=== PATIENT | female | born 1950 | race Caucasian/White ===

== ENCOUNTER → 2020-10-04 | Outpatient (CLI) | payer OTHER ==
[2020-10-04 11:35] LABS: Appearance,Urine Clear (Clear); Bilirubin,Urine Negative (Negative); Blood,Urine Moderate (Negative); Color,Urine Light Yellow; Glucose,Urine (UA) Negative (Negative); INR 0.9 (<1.2); Ketones,Urine Negative (Negative); Leukocyte Esterase,Urine Negative (Negative); Mucus,Urine Rare /hpf; Nitrite,Urine Negative (Negative); Partial Thromboplastin Time 24.2 sec (22.0-30.0); Protein,Urine Negative (Negative); Prothrombin Time 10.1 sec (9.0-12.0); RBC,Urine 2 /hpf (0-5); Specific Gravity,Urine 1.009 (1.001-1.035); Urobilinogen,Urine <2.0 mg/dL (<2.0); WBC,Urine <1 /hpf (0-5)
[2020-10-04 11:38] LABS: ALT 26 U/L (4-34); AST 24 U/L (14-36); African American GFR (CKD) >90 (>60 ml/min/1.73 sqM); Albumin 4.9 g/dL (3.5-5.0); Alkaline Phosphatase 70 U/L (38-126); Anion Gap 9 mmol/L; Blood Urea Nitrogen 16 mg/dL (7-17); Calcium 10.6 mg/dL (8.4-10.2); Carbon Dioxide 29 mmol/L (22-30); Chloride 101 mmol/L (98-107); Glucose 91 mg/dL (74-99); Non-African American GFR(CKD) >90 (>60 ml/min/1.73 sqM); Sodium 139 mmol/L (137-145); Total Bilirubin 0.6 mg/dL (0.2-1.3); Total Protein 7.5 g/dL (6.3-8.2)
[2020-10-04 11:52] LABS: HCT 37.3 % (34.0-46.0); MCH 31.7 pg (25.0-35.0); MCHC 34.8 g/dL (31.0-37.0); MCV 91.1 fL (80.0-100.0); Mean Platelet Volume 6.7; Platelet Count 257 k/uL (150-450); RBC 4.09 m/uL (3.80-5.40); RDW 12.9 % (11.5-15.5); WBC 9.1 k/uL (3.8-10.6)
== END | disposition home or self-care (01) ==
LOC: LABPAT 09:57
PROVIDERS: ATTEND Orthopaedic Surgery
DX: Z01.812 Encounter for preprocedural laboratory examination (principal); R94.31 Abnormal electrocardiogram [ECG] [EKG]
CPT/HCPCS: 36415; 80053; 81001; 85027; 85610; 85730; 87070; 93005

== ENCOUNTER 2020-10-29 09:02 | Day surgery (SDC) | payer MEDICARE, OTHER ==
[2020-10-08 13:39] VITALS: BMI 21.2
[~2020-10-29 09:02] MED LIST: ACETAMINOPHEN TAB 500 MG TAB PO PRN; DEXAMETHASONE SOD PHOSPHATE 4 MG/ML 1 ML VIAL IV ONE; LACTATED RINGERS 1,000 ML IV SCH; LIDOCAINE 1% (10MG/ML) FOR IV START INTRADERMA PRN; MELOXICAM 7.5 MG TAB PO PRN; ROPIVACAINE/EPI/CLONIDINE/KET 50 ML SYRINGE MISCELLANE PRN; TRANEXAMIC ACID 1,000 MG in SODIUM CHLORIDE 0.9% 100 ML IVPB PRN
[2020-10-29] MEDS: ONDANSETRON 4 MG/2 ML VIAL IVP PRN ×2 (09:50→11:50)
[2020-10-29] MEDS ORDERED: PROPOFOL 10 MG/ML 20 ML VIAL IV ONE (09:56)
[2020-10-29] MEDS ORDERED: SODIUM CHLORIDE 0.9% 100 ML BAG ONE (09:56)
[2020-10-29] MEDS ORDERED: ROCURONIUM 10 MG/ML (5 ML VIAL) IV ONE (09:56)
[2020-10-29] MEDS ORDERED: LIDOCAINE 1% INJ 10MG/ML (20 ML MDV) ONE (09:56)
[2020-10-29] MEDS ORDERED: HYDROmorphone (PF) 1 MG/ML ONE (09:56)
[2020-10-29] MEDS ORDERED: fentaNYL (PF) 50 MCG/ML 2 ML AMP ONE (09:56)
[2020-10-29] MEDS ORDERED: GLYCOPYRROLATE 0.2 MG/ML 2 ML VIAL ONE (09:56)
[2020-10-29] MEDS ORDERED: SUCCINYLCHOLINE CHLORIDE 100 MG/5 ML SYR IV ONE (09:56)
[2020-10-29] MEDS ORDERED: NEOSTIGMINE 1 MG/ML 10 ML VIAL ONE (09:56)
[2020-10-29] MEDS ORDERED: TRANEXAMIC ACID 1,000 MG/10 ML VIAL ONE (09:56)
[2020-10-29] MEDS ORDERED: MIDAZOLAM 2 MG/2 ML VIAL ONE (09:56)
[2020-10-29] MEDS ORDERED: ceFAZolin 3,000 MG in SODIUM CHLORIDE 0.9% IRRIGATIO 3,000 ML IRRIGATION ONE (10:00)
[2020-10-29] MEDS ORDERED: LACTATED RINGERS 1,000 ML IV ONE (11:26)
--- NOTE | 2020-10-29 11:37 | P.OP ---
Date of Procedure: 10/29/20 Procedure(s) Performed: PREOPERATIVE DIAGNOSIS: Left hip severe osteoarthritis POSTOPERATIVE DIAGNOSIS: Left hip severe osteoarthritis OPERATION: Left hip total replacement arthroplasty (uncemented implantation with metal on polyethylene articulation). ANESTHESIA: Spinal ESTIMATED BLOOD LOSS: 75 ml. SALES PROGRAM COORDINATOR:Erika Scott PA-C (assistance with: patient positioning, retraction, exposure, hemostasis, leg positioning, implantation, irrigation, closure, dressing) COMPLICATIONS: None apparent. COMPONENTS IMPLANTED: Sirera continuum acetabular cup with cluster holes; continuum longevity 15 elevated liner, 32 mm id; Sierra VerSys Fiber Metal mid coat stem; VerSys 32 mm femoral head with -3.5 mm neck length extension INDICATIONS: Jo is a 70-year-old female with significant end-stage osteoarthritis involving the left hip and commensurate severe symptoms. She presents to the operating room today for total hip replacement. I have discussed the steps of the operation as well as potential risks and complications as being inclusive of, but not limited to: Leading, infection, scarring, discomfort, or vessel and/or nerve damage, need for further surgery, loosening, dislocation, wear, osteolysis, limb length inequality, fracture, blood clot, pulmonary embolism, , persistent limp, and other risks. The patient is aware these risks and wishes to proceed with surgery and has signed a consent form. PROCEDURE: After appropriate consent was obtained, the patient was taken to the operating room and placed in supine position. Spinal anesthetic was administered and after confirmation of adequate anesthesia, the patient was placed into the lateral decubitus position with the left side up. Care was taken to make sure that all pressure points were adequately padded and he was stabilized to the table with a [place] hip positioner. The left hip was prepped and draped in the usual aseptic fashion using a combination of ChloraPrep and alcohol. [place] drape was used for the case and the patient received intravenous antibiotics prior to the incision. "Time out" was called, confirming patient identity, side, procedure, availability of implants and administration of antibiotics. The incision was created directly over the greater trochanter and carried slightly posteriorly for a posterior approach to the hip. Patient had a high takeoff of the TFL muscle. The incision was then deepened down to subcutaneous tissue and fascia cami. Fascia cami was split in line with the incision and split proximally along the fibers of the gluteus clare. The underlying fibers of the muscle were teased apart using finger dissection and bleeding vessels were picked up and coagulated. Retractor was then placed posteriorly consisting of a blunt [place]. The short external rotators and capsule were exposed using good visualization of the attachment of the external rotators to the femur was established. The short external rotators and capsule were released using electrocautery from their femoral attachments. A hockey stick shaped incision was created in the capsule. Joint fluid was evacuated and the patient's hip was able to be dislocated fairly easily. The patient's femoral head was severely arthritic with eburnated bone present and a 360 degrees san of osteophytes. The femoral neck cut was created approximately 1 cm superior to the lesser trochanter using a reciprocating saw. The femoral head and neck fragment was removed and attention was then directed to the acetabulum. An anterior acetabular retractor was applied followed by posterior retraction of the capsule with a Meyerding retractor. This afforded good visualization into the acetabular cavity. Soft tissue was removed and residual cartilage within the acetabular vault was removed using a curette. Labrum was removed using a long-handled knife. Attention was then directed to reaming. The size 44 reamer was used first, followed by increasing increments until the final size reamer was used. Please see the implantation sheet for exact sizes used for the components. Once the final reamer had been utilized to expand the socket it was noted that there was a good supportive bone around the acetabular socket and no further reaming needed to be performed. The trial the same size as the last reamer used was then impacted into the acetabular vault and found to have good fit. The acetabular component, one size (2mm) greater than the trial was then called for. The cluster holes were placed posteriorly and the component was impacted in a position of approximately 40 degrees abduction and 20 degrees anteversion. This matched this patient's [place] anteversion and it was noted that the cup had excellent stability but I felt that additional stabilization with a acetabular screw would be prudent and therefore a 25 mm 6.5 elevator cancellus screw was placed in the superior posterior screw hole of the cluster holes. Attention was then directed to the acetabular liner. The anteversion and abduction angle of the component was noted to be very good. A 15 elevated liner was used and locked into position. Osteophytes around the posterior and inferior aspect of the acetabulum were trimmed as necessary to prevent any impingement. Attention was then directed back to the proximal femur. Retractors were placed around the proximal femur and box osteotome was used followed by canal finder and trochanteric reamer. Cylindrical reaming was performed. Progressive broaching was then performed starting with a #10 broach and progressing final size, in a position of 15 degrees anteversion. [place] anteversion was within 5 degrees of stem position. The final size broach had excellent fit and fill of the patient's metaphysis and diaphysis. Trial reduction was then performed starting with size 32 mm femoral head and various neck combination of stability, limb length equality, and soft tissue tension. Care was taken not to lengthen the leg. Trial components were then removed. The canal was lavaged and the final size femoral stem component was impacted into position. The implant fit very well and had excellent stability. The femoral head was then impacted onto the Gregory taper. Blood and debris were removed from the acetabular component and the hip was then reduced and checked for stability, limb length and soft tissue tension. These parameters found to be satisfactory, the wound was then thoroughly irrigated with normal saline. Final hemostasis was obtained using electrocautery and IV tranexamic acid, 1 g given at the time of prepping and draping, and another 1 g given at the time of closure. Local anesthetic solution consisting of ropivacaine with epinephrine, clonidine, and ketorolac was also used throughout the case targeting the capsule, fascia, and skin. Closure of the capsule was performed meticulously using #3 Vicryl suture. Four [id number] sutures were placed in the posterior capsule along with repair of the external rotators. The fascia cami was then repaired using combination of #3 Vicryl suture in interrupted fashion and Quill and running fashion. 2-0 Vicryl suture was used for the subcutaneous tissues and 3-0 Quill for the skin. Dermabond or Steri-Strips were then applied. The patient tolerated the procedure well. There were no complications and the wound bed was dry and there was no need for drain placement. Sterile dressing was then applied and the patient was carefully removed from the operating room table, placed on the stretcher and was taken to the recovery room in stable condition. Sponge and needle counts were correct.
[2020-10-29] MEDS: HYDROmorphone 0.5 MG/0.5 ML SYRINGE IVP ONE ×4 (11:50→12:06)
[2020-10-29] MEDS ORDERED: KETOROLAC 15 MG/ML 1 ML VIAL IVP ONE (11:50)
[2020-10-29 11:53] VITALS: TEMP 97.9
[2020-10-29] MEDS: MEPERIDINE 50 MG/ML SYRINGE IVP ONE ×2 (12:13→12:20)
--- NOTE | 2020-10-29 12:44 | XR ---
EXAMINATION TYPE: XR Hip Limited LT DATE OF EXAM: 10/29/2020 COMPARISON: NONE HISTORY: Stopped TECHNIQUE: One view submitted. FINDINGS: There is postsurgical change in near anatomic alignment. There is soft tissue edema and emphysema. IMPRESSION: 1. Postoperative change. Appears in near-anatomic alignment.
[2020-10-29] MEDS ORDERED: HYDROcodone/APAP 7.5-325MG 1 EACH TAB PO ONE (13:29)
[2020-10-29] MEDS ORDERED: HYDROcodone/APAP 7.5-325MG 1 EACH TAB ONE (13:30)
[2020-10-29] MEDS ORDERED: ONDANSETRON 4 MG/2 ML VIAL ONE (14:54)
[2020-10-29] MEDS ORDERED: ONDANSETRON 4 MG/2 ML VIAL IVP ONE (14:57)
[2020-10-29 15:54] VITALS: BP 155/80; PULSE 77; RESP 20
== END 2020-10-29 17:16 | disposition home health service (06) ==
LOC: OR 09:02
PROVIDERS: ATTEND Orthopaedic Surgery
DX: M16.12 Unilateral primary osteoarthritis, left hip (principal); M16.11 Unilateral primary osteoarthritis, right hip; Z79.899 Other long term (current) drug therapy; Z82.49 Family history of ischemic heart disease and other diseases of the circulatory system; Z87.891 Personal history of nicotine dependence; Z88.1 Allergy status to other antibiotic agents
CPT/HCPCS: 97110; 97161; 86900; 86901; 86850; 88300; 73501; 27130; C1776; J2250; J1100; J2710; J2175; J0690 ×2; J2405; J2001; J3010; J1170 ×2; J1885; J0330; J2704

== ENCOUNTER → 2021-01-25 | Outpatient (CLI) | payer MEDICARE ==
[2021-01-25 13:11] LABS: HCT 42.4 % (34.0-46.0); HGB 14.1 gm/dL (11.4-16.0); MCH 30.3 pg (25.0-35.0); MCHC 33.3 g/dL (31.0-37.0); MCV 90.8 fL (80.0-100.0); Mean Platelet Volume 6.6; Platelet Count 212 k/uL (150-450); RBC 4.66 m/uL (3.80-5.40); RDW 14.2 % (11.5-15.5)
[2021-01-25 13:21] LABS: ALT 21 U/L (4-34); AST 25 U/L (14-36); African American GFR (CKD) >90 (>60 ml/min/1.73 sqM); Albumin 4.8 g/dL (3.5-5.0); Alkaline Phosphatase 94 U/L (38-126); Anion Gap 10 mmol/L; Blood Urea Nitrogen 11 mg/dL (7-17); Calcium 10.4 mg/dL (8.4-10.2); Carbon Dioxide 27 mmol/L (22-30); Chloride 103 mmol/L (98-107); Glucose 107 mg/dL (74-99); Non-African American GFR(CKD) >90 (>60 ml/min/1.73 sqM); Potassium 3.7 mmol/L (3.5-5.1); Sodium 140 mmol/L (137-145); Total Bilirubin 0.3 mg/dL (0.2-1.3); Total Protein 7.3 g/dL (6.3-8.2)
[2021-01-25 14:06] LABS: INR 0.9 (<1.2); Partial Thromboplastin Time 23.3 sec (22.0-30.0); Prothrombin Time 10.1 sec (9.0-12.0)
[2021-01-25 14:16] LABS: Appearance,Urine Clear (Clear); Bilirubin,Urine Negative (Negative); Blood,Urine Moderate (Negative); Color,Urine Light Yellow; Glucose,Urine (UA) Negative (Negative); Ketones,Urine Negative (Negative); Leukocyte Esterase,Urine Negative (Negative); Mucus,Urine Rare /hpf; Nitrite,Urine Negative (Negative); PH, Urine 5.5 (5.0-8.0); Protein,Urine Negative (Negative); RBC,Urine 3 /hpf (0-5); Specific Gravity,Urine 1.006 (1.001-1.035); Urobilinogen,Urine <2.0 mg/dL (<2.0); WBC,Urine 1 /hpf (0-5)
== END | disposition home or self-care (01) ==
LOC: LABPAT 12:11
PROVIDERS: ATTEND Orthopaedic Surgery
DX: Z01.812 Encounter for preprocedural laboratory examination (principal); M16.11 Unilateral primary osteoarthritis, right hip; Z79.01 Long term (current) use of anticoagulants
CPT/HCPCS: 36415; 80053; 81001; 85027; 85610; 85730; 87070

== ENCOUNTER 2021-02-04 06:27 | Day surgery (SDC) | payer MEDICARE ==
[2021-01-30 11:22] VITALS: BMI 21.7
[~2021-02-04 06:27] MED LIST changes: +MIDAZOLAM 2 MG/2 ML VIAL IV PRN; +ONDANSETRON 4 MG/2 ML VIAL IVP ONE; +ONDANSETRON 4 MG/2 ML VIAL IVP PRN; -ROPIVACAINE/EPI/CLONIDINE/KET 50 ML SYRINGE MISCELLANE PRN
[2021-02-04 06:57] VITALS: RESP 16
[2021-02-04] MEDS ORDERED: KETAMINE 10 MG/ML 20 ML VIAL ONE (07:33)
[2021-02-04] MEDS ORDERED: HYDROmorphone (PF) 1 MG/ML ONE (07:33)
[2021-02-04] MEDS ORDERED: MIDAZOLAM 2 MG/2 ML VIAL ONE (07:33)
[2021-02-04] MEDS ORDERED: SUCCINYLCHOLINE CHLORIDE 100 MG/5 ML SYR IV ONE (07:33)
[2021-02-04] MEDS ORDERED: PROPOFOL 10 MG/ML 20 ML VIAL IV ONE (07:33)
[2021-02-04] MEDS ORDERED: fentaNYL (PF) 50 MCG/ML 2 ML AMP ONE (07:33)
[2021-02-04] MEDS ORDERED: NEOSTIGMINE 1 MG/ML 10 ML VIAL ONE (07:33)
[2021-02-04] MEDS ORDERED: LIDOCAINE 1% INJ 10MG/ML (20 ML MDV) ONE (07:33)
[2021-02-04] MEDS ORDERED: ROCURONIUM 10 MG/ML (5 ML VIAL) IV ONE (07:33)
[2021-02-04] MEDS ORDERED: TRANEXAMIC ACID 1,000 MG/10 ML VIAL ONE (07:33)
[2021-02-04] MEDS ORDERED: GLYCOPYRROLATE 0.2 MG/ML 2 ML VIAL ONE (07:33)
[2021-02-04] MEDS ORDERED: SODIUM CHLORIDE 0.9% 100 ML BAG ONE (07:33)
[2021-02-04] MEDS ORDERED: ceFAZolin 1,000 MG in SODIUM CHLORIDE 0.9% 1,000 ML IRRIGATION ONE (07:37)
[2021-02-04] MEDS: ROPIVACAINE/EPI/CLONIDINE/KET 50 ML SYRINGE MISCELLANE PRN ×2 (08:07→08:39)
--- NOTE | 2021-02-04 08:55 | P.OP ---
Date of Procedure: 02/04/21 Procedure(s) Performed: PREOPERATIVE DIAGNOSIS: Right hip severe osteoarthritis POSTOPERATIVE DIAGNOSIS: Right hip severe osteoarthritis OPERATION: Right hip total replacement arthroplasty (uncemented implantation with metal on polyethylene articulation). ANESTHESIA: Spinal ESTIMATED BLOOD LOSS: 100 ml. NAIL FEEDER: Erika Scott PA-C (assistance with: patient positioning, retraction, exposure, hemostasis, leg positioning, implantation, irrigation, closure, dressing) COMPLICATIONS: None apparent. COMPONENTS IMPLANTED: Sierra continuum acetabular cup with cluster holes; continuum longevity 15 elevated liner, 32 mm id; Sierra VerSys Fiber Metal stem; VerSys 32 mm femoral head with +0 mm neck length extension INDICATIONS: Mrs. Govea chavo 70 year old female with significant end-stage osteoarthritis involving the right hip and commensurate severe symptoms. She presents to the operating room today for total hip replacement. I have discussed the steps of the operation as well as potential risks and complications as being inclusive of, but not limited to: Leading, infection, scarring, discomfort, or vessel and/or nerve damage, need for further surgery, loosening, dislocation, wear, osteolysis, limb length inequality, fracture, blood clot, pulmonary embolism, , persistent limp, and other risks. The patient is aware these risks and wishes to proceed with surgery and has signed a consent form. PROCEDURE: After appropriate consent was obtained, the patient was taken to the operating room and placed in supine position. Spinal anesthetic was administered and after confirmation of adequate anesthesia, the patient was placed into the lateral decubitus position with the right side up. Care was taken to make sure that all pressure points were adequately padded and he was stabilized to the table with a [place] hip positioner. The right hip was prepped and draped in the usual aseptic fashion using a combination of ChloraPrep and alcohol. Ioban drape was used for the case and the patient received intravenous antibiotics prior to the incision. "Time out" was called, confirming patient identity, side, procedure, availability of implants and administration of antibiotics. The incision was created directly over the greater trochanter and carried slightly posteriorly for a posterior approach to the hip. The incision was then deepened down to subcutaneous tissue and fascia cami. Fascia cami was split in line with the incision and split proximally along the fibers of the gluteus clare. The underlying fibers of the muscle were teased apart using finger dissection and bleeding vessels were picked up and coagulated. Retractor was then placed posteriorly consisting of a blunt [place]. The short external rotators and capsule were exposed using good visualization of the attachment of the external rotators to the femur was established. The short external rotators and capsule were released using electrocautery from their femoral attachments. A hockey stick shaped incision was created in the capsule. Joint fluid was evacuated and the patient's hip was able to be dislocated fairly easily. The patient's femoral head was severely arthritic with eburnated bone present and a 360 degrees san of osteophytes. The femoral neck cut was created approximately 1 cm superior to the lesser trochanter using a reciprocating saw. The femoral head and neck fragment was removed and attention was then directed to the acetabulum. An anterior acetabular retractor was applied followed by posterior retraction of the capsule with a Meyerding retractor. This afforded good visualization into the acetabular cavity. Soft tissue was removed and residual cartilage within the acetabular vault was removed using a curette. Labrum was removed using a long-handled knife. Attention was then directed to reaming. The size 44 reamer was used first, followed by increasing increments until the final size reamer was used. Please see the implantation sheet for exact sizes used for the components. Once the final reamer had been utilized to expand the socket it was noted that there was a good supportive bone around the acetabular socket and no further reaming needed to be performed. The trial the same size as the last reamer used was then impacted into the acetabular vault and found to have good fit. The acetabular component, one size (2mm) greater than the trial was then called for. The cluster holes were placed posteriorly and the component was impacted in a position of approximately 40 degrees abduction and 20 degrees anteversion. This matched this patient's [place] anteversion and it was noted that the cup had excellent stability without need for additional screw fixation. Attention was then directed to the acetabular liner. The anteversion and abduction angle of the component was noted to be very good. A 15 elevated liner was used and locked into position with the elevation posterior superior. Osteophytes around the posterior and inferior aspect of the acetabulum were trimmed as necessary to prevent any impingement. Attention was then directed back to the proximal femur. Retractors were placed around the proximal femur and box osteotome was used followed by canal finder and trochanteric reamer. Cylindrical reaming was performed. Progressive broach ing was then performed starting with a #10 broach and progressing final size, in a position of 15 degrees anteversion. [place] anteversion was within 5 degrees of stem position. The final size broach had excellent fit and fill of the patient's metaphysis and diaphysis. Trial reduction was then performed starting with size 32 mm femoral head and various neck combination of stability, limb length equ ality, and soft tissue tension. Trial components were then removed. The canal was lavaged and the final size femoral stem component was impacted into position. The implant fit very well and had excellent stability. The femoral head was then impacted onto the Gregory taper. Blood and debris were removed from the acetabular component and the hip was then reduced and checked for stability, limb length and soft tissue tension. These parameters found to be satisfactory, the wound was then thoroughly irrigated with normal saline. Final hemostasis was obtained using electrocautery and IV tranexamic acid, 1 g given at the time of prepping and draping, and another 1 g given at the time of closure. Local anesthetic solution consisting of ropivacaine with epinephrine, clonidine, and ketorolac was also used throughout the case targeting the capsule, fascia, and skin. Closure of the capsule was performed meticulously using #3 Vicryl suture. Four [id number] sutures were placed in the posterior capsule along with repair of the external rotators. The fascia cami was then repaired using combination of #3 Vicryl suture in interrupted fashion and Quill and running fashion. 2-0 Vicryl suture was used for the subcutaneous tissues and 3-0 Quill for the skin. Dermabond or Steri-Strips were then applied. The patient tolerated the procedure well. There were no complications and the wound bed was dry and there was no need for drain placement. Sterile dressing was then applied and the patient was carefully removed from the operating room table, placed on the stretcher and was taken to the recovery room in stable condition. Sponge and needle counts were correct.
[2021-02-04] MEDS ORDERED: IV FLUID CONTINUATION 1,000 ML IV ONE ×2 (09:15)
[2021-02-04 09:26] VITALS: TEMP 97.5
[2021-02-04] MEDS: HYDROmorphone 0.5 MG/0.5 ML SYRINGE IVP PRN ×2 (09:48→10:06)
--- NOTE | 2021-02-04 10:25 | XR ---
EXAMINATION TYPE: XR Hip Limited RT DATE OF EXAM: 02/04/2021 COMPARISON: NONE HISTORY: Postop TECHNIQUE: One view submitted. FINDINGS: There is postsurgical change in near anatomic alignment. There is soft tissue edema and emphysema. IMPRESSION: 1. Postoperative change. Appears in near-anatomic alignment.
[2021-02-04 12:35] VITALS: PULSE 77
[2021-02-04 12:36] VITALS: BP 154/76
[2021-02-04] MEDS ORDERED: HYDROcodone/APAP 7.5-325MG 1 EACH TAB ONE (13:08)
== END 2021-02-04 13:40 | disposition home health service (06) ==
LOC: OR 06:27
PROVIDERS: ATTEND Orthopaedic Surgery
DX: M16.11 Unilateral primary osteoarthritis, right hip (principal); Z96.641 Presence of right artificial hip joint
CPT/HCPCS: 13101; 13121; 97110; 97161; 86900; 86901; 86850; 73501; J1100; J0690 ×2; J2405; J1170; 88300

== ENCOUNTER 2021-02-22 13:15 | Observation (INO) | payer MEDICARE ==
[2021-02-21 13:15] VITALS: BMI 21.7
[~2021-02-22 13:15] MED LIST changes: -ACETAMINOPHEN TAB 500 MG TAB PO PRN; -LACTATED RINGERS 1,000 ML IV SCH; -MELOXICAM 7.5 MG TAB PO PRN; -MIDAZOLAM 2 MG/2 ML VIAL IV PRN; -ONDANSETRON 4 MG/2 ML VIAL IVP PRN; -TRANEXAMIC ACID 1,000 MG in SODIUM CHLORIDE 0.9% 100 ML IVPB PRN
[2021-02-22] MEDS ORDERED: ONDANSETRON 4 MG/2 ML VIAL ONE (14:31)
[2021-02-22] MEDS: LACTATED RINGERS 1,000 ML IV SCH ×2 (14:33→19:05)
[2021-02-22] MEDS ORDERED: ROCURONIUM 10 MG/ML (5 ML VIAL) IV ONE (15:32)
[2021-02-22] MEDS ORDERED: SUCCINYLCHOLINE CHLORIDE 100 MG/5 ML SYR IV ONE (15:32)
[2021-02-22] MEDS ORDERED: LIDOCAINE 1% INJ 10MG/ML (20 ML MDV) ONE (15:32)
[2021-02-22] MEDS ORDERED: GLYCOPYRROLATE 0.2 MG/ML 2 ML VIAL ONE (15:32)
[2021-02-22] MEDS ORDERED: NEOSTIGMINE 1 MG/ML 10 ML VIAL ONE (15:32)
[2021-02-22] MEDS ORDERED: hydrOXYzine pamoate 25 MG CAP PO PRN (15:32)
[2021-02-22] MEDS ORDERED: MAGNESIUM HYDROXIDE 2,400 MG/10 ML CUP PO PRN (15:32)
[2021-02-22] MEDS ORDERED: fentaNYL (PF) 50 MCG/ML 2 ML AMP ONE (15:32)
[2021-02-22] MEDS ORDERED: ONDANSETRON 4 MG/2 ML VIAL IVP PRN (15:32)
[2021-02-22] MEDS ORDERED: HYDROmorphone 0.2 MG/1 ML SYRINGE IVP PRN (15:32)
[2021-02-22] MEDS ORDERED: PROPOFOL 10 MG/ML 20 ML VIAL IV ONE (15:32)
[2021-02-22] MEDS ORDERED: TRANEXAMIC ACID 1,000 MG/10 ML VIAL ONE (15:32)
[2021-02-22] MEDS ORDERED: SODIUM CHLORIDE 0.9% IRRIG 1,000 ML BTL IRRIGATION ONE (15:32)
[2021-02-22] MEDS ORDERED: NALOXONE 0.4 MG/ML 1 ML VIAL IV PRN (15:32)
[2021-02-22] MEDS ORDERED: SODIUM CHLORIDE 0.9% 100 ML BAG ONE (15:32)
[2021-02-22] MEDS ORDERED: MIDAZOLAM 2 MG/2 ML VIAL ONE (15:32)
[2021-02-22] MEDS ORDERED: HYDROmorphone 0.5 MG/0.5 ML SYRINGE IVP PRN (15:32)
[2021-02-22] MEDS ORDERED: HYDROmorphone (PF) 1 MG/ML ONE (15:32)
[2021-02-22] MEDS ORDERED: HEPARIN SODIUM,PORCINE 10,000 UNIT/ML 1 ML VIAL ONE (15:32)
[2021-02-22] MEDS ORDERED: HYDROcodone/APAP 7.5-325MG 1 EACH TAB PO PRN (15:36)
[2021-02-22] MEDS ORDERED: TRANEXAMIC ACID 1,000 MG in SODIUM CHLORIDE 0.9% 100 ML IVPB ONE ×4 (16:00)
--- NOTE | 2021-02-22 17:47 | P.OP ---
Date of Procedure: 02/22/21 Procedure(s) Performed: PREOPERATIVE DIAGNOSES: 1. Right periprosthetic displaced oblique femoral calcar fracture 2. 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 Right periprosthetic displaced oblique femoral calcar fracture 2. 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 Right femoral component revision with long stem fully coated porous component 2. Right periprosthetic displaced oblique femoral calcar fracture ORIF with Sierra cables ANESTHESIA: greige mender: Tessie Salas PA-C (assistance with exposure, hemostasis, retraction, fixation, closure, dressing, splint) COMPLICATIONS: None ESTIMATED BLOOD LOSS: 500 mL. DISPOSITION: To post-anesthesia care unit INDICATIONS: Mrs. Govea is a 70 year old female with a history of recent total hip arthroplasty who has sustained a displaced calcar fracture of the right femur along with subsidence and failure of the femoral component. Discussion has been held regarding treatment options and patient desires to proceed with open reduction and internal fixation with revision of the femoral component. Risks and potential complications of this operation were discussed at length. These are inclusive of, but not limited to: Bleeding, infection, scarring, discomfort, blood vessel and/or nerve damage, stiffness of the knee, tendon injury, malunion, nonunion, hardware irritation, dislocation, need for further surgery, blood clot, pulmonary embolism, , loss of ability to walk, and other risks. Consent form has been signed. PROCEDURE: After appropriate consent was obtained, the patient was taken to the operating room placed in the supine position. Anesthesia was initiated, and after confirmation of adequate anesthesia, the patient was carefully positioned. Care was taken to make sure that all pressure points were adequately padded. The patient was arranged carefully in the fracture table frame. Prepping and draping were completed in the usual aseptic fashion using ChloraPrep. Timeout was called, confirming patient identity, side, procedure, and administration of antibiotics and tranexamic acid. Incision was created over the recent scar and the exposure for the hip was recreated by removing the sutures in the fascia, capsule, and subcutaneous tissues. The fracture was encountered and hematoma was evacuated. The exposure was extended for approximately 3 inches in order to fully expose the femoral shaft where the fracture had occurred in order to place cables. The fracture was then reduced and held with a bone-holding clamp. 3 cables were then carefully placed around the femoral shaft, 1 above the lesser trochanter and 2 below it. These were preliminarily tightened using the business machines teacher and locked into place. Next, the hip was rotated into a standard rotated position to expose the mouth of the femur. Soft tissue in this region was removed as necessary and retractors were placed. It was noted that the acetabular reconstruction was clearly intact and normal and well positioned. A sponge was placed within the acetabular cavity for protection of the acetabular reconstruction. Systolic, cylindrical reaming was performed in preparation for a fully porous-coated 175 mm femoral stem from Sierra. Reaming progressed to cortical chatter and then broaching was performed to the final size necessary. Trial reduction was performed using a standard +0 femoral head and parameters of leg length, stability, and soft tissue tension appeared to be optimal. Calcar planing was performed and the final component was called for. The fully porous coated femoral stem was carefully and meticulously impacted and was final resting position and was noted that there was excellent purchase and stability of the component. Subsequently, the cables were final tightened and crimped. A trial femoral head was applied and found to be optimal for soft tissue tension, stability, and leg length. The cobalt chrome head was then called for and impacted onto the Gregory taper. Reduction was then performed final range of motion, leg length, stability and soft tissue tension testing was performed and found to be optimal. Thorough irrigation using Irricept was performed followed by regular pulse lavage saline and patient was given another gram of intravenous tranexamic acid. Closure of the capsule was performed using #3 Vicryl suture followed by #3 strata fix suture in the fascia and 2-0 Vicryl suture in subcutaneous tissues followed by 30 strata fix suture in the skin and cyanoacrylate closure with Opteform dressing. Patient tolerated the procedure well and there were no complications. Cell Saver was used for the case and the patient received 166 mL of blood after losing 500 mL. Vascular status of the foot remained unchanged. Patient tolerated the procedure well and taken to recovery room in stable condition. Sponge and needle counts were correct.
[2021-02-22] MEDS ORDERED: HYDROmorphone 1 MG/ML 1 ML SYRINGE ONE (18:18)
--- NOTE | 2021-02-22 18:19 | XR ---
EXAMINATION TYPE: XR Hip Limited RT DATE OF EXAM: 02/22/2021 COMPARISON: 02/04/2021 HISTORY: Postop TECHNIQUE: Single view FINDINGS: There is right hip prosthesis. There is revision compared to old exam. Components appear in anatomic position. IMPRESSION: No complicating process seen.
[2021-02-22] MEDS ORDERED: HYDROmorphone 1 MG/ML 1 ML SYRINGE IVP ONE (18:21)
[2021-02-22] MEDS: SODIUM CHLORIDE 0.9% 1,000 ML IV SCH ×2 (18:22→18:58)
[2021-02-22] MEDS: HYDROcodone/APAP 7.5-325MG 1 EACH TAB PO PRN (19:37)
[2021-02-22] MEDS: ASPIRIN 325 MG TAB PO SCH (19:37)
[2021-02-22] MEDS ORDERED: LORATADINE 10 MG TAB PO PRN (20:25)
[2021-02-22] MEDS ORDERED: GABAPENTIN 300 MG CAP PO PRN (20:25)
[2021-02-22] MEDS ORDERED: CITALOPRAM HYDROBROMIDE 20 MG TAB PO SCH (21:00)
[2021-02-22] MEDS ORDERED: NON FORMULARY DRUG (Aspirin [Adult Low Dose Aspirin Ec] 81 MG Tablet.Dr) PO SCH (21:00)
[2021-02-22] MEDS ORDERED: ATORVASTATIN 20 MG TAB PO SCH (21:00)
[2021-02-22] MEDS ORDERED: SENNOSIDES-DOCUSATE SODIUM 1 EACH TAB PO SCH ×2 (21:00)
[2021-02-22] MEDS: HYDROmorphone 0.5 MG/0.5 ML SYRINGE IVP PRN (21:44)
[2021-02-23 02:34] VITALS: RESP 16
[2021-02-23] MEDS: HYDROmorphone 0.5 MG/0.5 ML SYRINGE IVP PRN ×2 (03:17→06:55)
[2021-02-23 07:46] VITALS: BP 158/67; PULSE 61; TEMP 98.2
[2021-02-23] MEDS: ASPIRIN 325 MG TAB PO SCH (08:07)
[2021-02-23] MEDS: HYDROcodone/APAP 7.5-325MG 1 EACH TAB PO PRN (08:07)
[2021-02-23] MEDS: SODIUM CHLORIDE 0.9% 1,000 ML IV SCH (08:08)
[2021-02-23] MEDS ORDERED: SENNOSIDES-DOCUSATE SODIUM 1 EACH TAB PO SCH (09:00)
[2021-02-23] MEDS ORDERED: CYCLOBENZAPRINE 10 MG TAB PO SCH (09:00)
[2021-02-23] MEDS ORDERED: HYDROcodone/APAP 10-325MG 1 EACH TAB PO PRN ×2 (09:44)
--- NOTE | 2021-02-23 09:51 | P.DS ---
Providers Date of admission: 02/23/21 07:39 Expected date of discharge: 02/23/21 Attending physician: Abhi Lee Consults: 02/22/21 15:32 Consult Physician Routine Consulting Provider: Chai Alfonso Consult Reason/Comments: medical management Do you want consulting provider notified?: Yes Primary care physician: Grace Mariee - Discharge Diagnosis(es) (1) Status post right hip replacement Current Visit: Yes Status: Acute Hospital Course: This is a 70-year-old female with known history of degenerative arthritis of the right hip. The patient presents for evaluation. After discussion and consideration patient elects to proceed with total hip arthroplasty, which was completed on 02/04/2021. The patient fell and sustained a periprosthetic fracture. Patient is admitted to [facility] on 02/22/2021 for right total revision hip arthroplasty with ORIF and cabling. The procedures performed without complication or sequelae. The patient is doing well postoperatively. Labs and vital signs are stable on day of discharge. On day of discharge patient's hip incision is healing well. There is minimal erythema. There is no drainage noted at this time. There is minimal soft tissue swelling to the hip and thigh. Patient has full foot and ankle motion without difficulty or pain. Neurovascular status to the right lower extremity is intact. Patient is discharged to home in good condition. Pertinent Studies: Laboratory Tests 02/23/21 06:29 WBC 12.02 H RBC 3.23 L Hgb 9.2 L Hct 30.3 L Plt Count 502 H Patient Condition at Discharge: Stable Plan - Discharge Summary Discharge Rx Participant: No New Discharge Prescriptions: New HYDROcodone/APAP 10-325MG [[place] 10-325] 1 - 2 tab PO Q4-6H PRN #40 tab PRN Reason: Pain Aspirin 81 mg PO BID #60 chewable Sennosides-Docusate Sodium [Senokot-S] 1 tab PO BID #30 tablet No Action Simvastatin [Zocor] 40 mg PO HS Citalopram Hydrobromide [CeleXA] 20 mg PO HS rOPINIRole HCL [Requip] 0.5 mg PO HS tiZANidine HCL [Zanaflex] 2 - 4 mg PO HS Loratadine [Claritin] 10 mg PO DAILY PRN PRN Reason: allergies Metaxalone [Skelaxin] 800 mg PO DAILY Meloxicam [Mobic] 7.5 - 15 mg PO DAILY PRN PRN Reason: Pain Gabapentin [Neurontin] 300 mg PO BID PRN PRN Reason: Pain Losartan/Hydrochlorothiazide [Hyzaar 100-25 Tablet] 1 tab PO 1700 Aspirin [Adult Low Dose Aspirin EC] 81 mg PO BID #1 tablet. HYDROcodone/APAP 7.5-325MG [[place] 7.5-325] 1 - 2 tab PO Q6HR PRN #42 tab PRN Reason: Pain Sennosides-Docusate Sodium [Senokot-S] 1 tab PO BID #60 tablet Discharge Medication List Citalopram Hydrobromide [CeleXA] 20 mg PO HS 03/24/14 [History] Simvastatin [Zocor] 40 mg PO HS 03/24/14 [History] rOPINIRole HCL [Requip] 0.5 mg PO HS 10/08/20 [History] tiZANidine HCL [Zanaflex] 2 - 4 mg PO HS 10/08/20 [History] Loratadine [Claritin] 10 mg PO DAILY PRN 10/19/20 [History] Losartan/Hydrochlorothiazide [Hyzaar 100-25 Tablet] 1 tab PO 1700 01/30/21 [History] Aspirin [Adult Low Dose Aspirin EC] 81 mg PO BID #1 tablet. 02/04/21 [Rx] HYDROcodone/APAP 7.5-325MG [[place] 7.5-325] 1 - 2 tab PO Q6HR PRN #42 tab 02/04/21 [Rx] Sennosides-Docusate Sodium [Senokot-S] 1 tab PO BID #60 tablet 02/04/21 [Rx] Gabapentin [Neurontin] 300 mg PO BID PRN 02/21/21 [History] Meloxicam [Mobic] 7.5 - 15 mg PO DAILY PRN 02/21/21 [History] Metaxalone [Skelaxin] 800 mg PO DAILY 02/21/21 [History] Aspirin 81 mg PO BID #60 chewable 02/23/21 [Rx] HYDROcodone/APAP 10-325MG [[place] 10-325] 1 - 2 tab PO Q4-6H PRN #40 tab 02/23/21 [Rx] Sennosides-Docusate Sodium [Senokot-S] 1 tab PO BID #30 tablet 02/23/21 [Rx] Follow up Appointment(s)/Referral(s): Abhi Lee MD [STAFF PHYSICIAN] - 10 Days (office closed at this time please make appointments after D/C) Patient Instructions/Handouts: Revision Total Joint Arthroplasty (DC) Activity/Diet/Wound Care/Special Instructions: Toe-touch weightbearing to the right lower extremity. Leave dressing intact. Dressing may be removed by home care nurse or by patient in 10 days. May shower with dressing on. If dressing become saturated, please remove. Continue hip dislocation precautions. Please take aspirin 81mg twice daily for 30 days to prevent blood clots. Recommend use of compression stockings daily until follow up to help prevent swelling and blood clots. May remove at night before sleeping. Please follow-up with [facility] and call with any questions or concerns, . Discharge Disposition: HOME WITH HOME HEALTH SERVICES
[2021-02-23 11:47] LABS: Basophils # (A) 0.06 X 10*3/uL (0.00-0.10); Basophils % (A) 0.5 %; Eosinophils # (A) 0.02 X 10*3/uL (0.04-0.35); Eosinophils % (A) 0.2 %; HCT 30.3 % (37.2-46.3); HGB 9.2 g/dL (12.0-15.0); Lymphocytes % (A) 23.3 %; MCH 28.5 pg (27.0-32.0); MCHC 30.4 g/dL (32.0-37.0); MCV 93.8 fL (80.0-97.0); Mean Platelet Volume 9.6 fL (9.5-12.2); Monocytes # (A) 1.47 X 10*3/uL (0.20-1.00); Monocytes % (A) 12.2 %; Neutrophils # (A) 7.61 X 10*3/uL (1.80-7.70); Neutrophils % (A) 63.3 %; Platelet Count 502 X 10*3/uL (140-440); RBC 3.23 X 10*6/uL (4.10-5.20); RDW 13.6 % (11.5-14.5); WBC 12.02 X 10*3/uL (4.50-10.00)
--- NOTE | 2021-02-23 16:35 | P.CONS ---
History of Present Illness - Reason for Consult Consult date: 02/23/21 - History of Present Illness Jo Govea, he is a 70-year-old female admitted to [facility] Dr. Lee, patient has known history of right total hip arthroplasty on 02/04/2021 she has failed femoral component with recurrent severe pain in the right hip she is admitted for revision of the femoral component and ORIF of fracture right hip. Medical consultation was requested or management while hospitalized Patient has a known history of hypertension, hyperlipidemia, restless leg syndrome, osteoarthritis with chronic pain, history of mitral valve prolapse with mitral valve regurgitation On review of systems Patient was seen and examined on the medical floor, she is alert and oriented x 3 in no distress, she denies any complaints there is no fever or chills no headache or dizziness no chest pain no shortness of breath no palpitation no cough no nausea or vomiting no abdominal pain no diarrhea no blood in the stools no burning with urination no frequency or urgency and no hematuria, there is no weakness or numbness in any of the extremities no change in vision speech or gait. Past Medical History Past Medical History: Hyperlipidemia, Hypertension, Osteoarthritis (OA) Additional Past Medical History / Comment(s): rt hip calcar fx,HEART MURMUR, PROLAPSE BLADDER History of Any Multi-Drug Resistant Organisms: None Reported Past Surgical History: Hysterectomy, Joint Replacement Additional Past Surgical History / Comment(s): rt total hip, COLONOSCOPY Past Anesthesia/Blood Transfusion Reactions: Previous Problems w/ Anesthesia Additional Past Anesthesia/Blood Transfusion Reaction / Comm: SLOW TO WAKE UP, no hx blood transfusion Past Psychological History: Depression Smoking Status: Former smoker Past Alcohol Use History: Occasional Additional Past Alcohol Use History / Comment(s): QUIT SMOKING APPROX 1994,STARTED 1969 Past Drug Use History: None Reported - Past Family History Father Family Medical History: Cancer Additional Family Medical History / Comment(s): COLON Mother Family Medical History: Hyperlipidemia, Hypertension Medications and Allergies Home Medications Medication Instructions Recorded Confirmed Type Citalopram Hydrobromide [CeleXA] 20 mg PO HS 03/24/14 02/22/21 History Simvastatin [Zocor] 40 mg PO HS 03/24/14 02/22/21 History rOPINIRole HCL [Requip] 0.5 mg PO HS 10/08/20 02/22/21 History tiZANidine HCL [Zanaflex] 2 - 4 mg PO HS 10/08/20 02/22/21 History Loratadine [Claritin] 10 mg PO DAILY PRN 10/19/20 02/22/21 History Losartan/Hydrochlorothiazide 1 tab PO 1700 01/30/21 02/22/21 History [Hyzaar 100-25 Tablet] Aspirin [Adult Low Dose Aspirin EC] 81 mg PO BID #1 tablet. 02/04/21 02/22/21 Rx HYDROcodone/APAP 7.5-325MG [[place] 1 - 2 tab PO Q6HR PRN #42 tab 02/04/21 02/22/21 Rx 7.5-325] Sennosides-Docusate Sodium 1 tab PO BID #60 tablet 02/04/21 02/22/21 Rx [Senokot-S] Gabapentin [Neurontin] 300 mg PO BID PRN 02/21/21 02/22/21 History Meloxicam [Mobic] 7.5 - 15 mg PO DAILY PRN 02/21/21 02/22/21 History Metaxalone [Skelaxin] 800 mg PO DAILY 02/21/21 02/22/21 History Aspirin 81 mg PO BID #60 chewable 02/23/21 Rx HYDROcodone/APAP 10-325MG [[place] 1 - 2 tab PO Q4-6H PRN #40 tab 02/23/21 Rx 10-325] Sennosides-Docusate Sodium 1 tab PO BID #30 tablet 02/23/21 Rx [Senokot-S] Allergies Allergy/AdvReac Type Severity Reaction Status Date / Time ampicillin Allergy Rash/Hives Verified 02/22/21 14:16 Physical Exam Vitals: Vital Signs Temp Pulse Pulse Resp BP BP Pulse Ox 02/23/21 07:00 98.2 F 61 16 158/67 97 02/23/21 02:00 98.0 F 74 16 137/62 96 02/22/21 21:18 76 154/67 93 L 02/22/21 21:03 81 150/67 95 02/22/21 20:48 76 145/71 94 L 02/22/21 20:33 79 164/69 92 L 02/22/21 20:18 82 157/75 92 L 02/22/21 20:15 76 18 02/22/21 20:03 75 173/69 90 L 08/27/21 19:48 84 157/67 95 02/22/21 19:33 87 159/75 94 L 02/22/21 19:05 98.4 F 80 18 162/68 93 L 02/22/21 18:50 82 16 171/80 97 02/22/21 18:35 75 16 176/83 100 02/22/21 18:20 74 16 174/73 100 02/22/21 18:05 78 16 189/85 100 02/22/21 17:52 97.9 F 86 16 197/80 96 02/22/21 14:28 98.8 F 68 16 153/82 95 Intake and Output 02/22/21 02/23/21 02/23/21 22:59 06:59 14:59 Intake Total 850 Output Total 500 Balance 350 Intake: IV 850 Output: Estimated Blood Loss 500 Other: Voiding Method Bedside Commode # Voids 1 Weight 55 kg In general patient is alert and oriented x 3 in no distress HEENT head normocephalic and atraumatic Neck is supple no JVD no goiter no lymphadenopathy no carotid bruit Chest examination is clear to auscultation no crackles no wheezing Cardiac exam reveals regular heart sounds S1 and S2 no gallops no murmurs Abdomen is soft nontender no organomegaly with normal bowel sounds Extremity exam reveals no edema no cyanosis or clubbing Neurological examination reveals no gross focal deficits Results CBC & Chem 7: 02/23/21 06:29 Labs: Abnormal Lab Results - Last 24 Hours (Table) 02/23/21 Range/Units 06:29 WBC 12.02 H (4.50-10.00) X 10*3/uL RBC 3.23 L (4.10-5.20) X 10*6/uL Hgb 9.2 L (12.0-15.0) g/dL Hct 30.3 L (37.2-46.3) % MCHC 30.4 L (32.0-37.0) g/dL Plt Count 502 H (140-440) X 10*3/uL Plt Count Comment INCREASED A Immature Gran # 0.06 H (0.00-0.04) X 10*3/uL Monocytes # 1.47 H (0.20-1.00) X 10*3/uL Eosinophils # 0.02 L (0.04-0.35) X 10*3/uL Assessment and Plan Plan: Status post revision of revision of right hip arthroplasty with ORIF Underlying history of hypertension Underlying history of hyperlipidemia Underlying history of mitral valve prolapse with regurgitation Underlying history of restless leg syndrome Underlying history of osteoarthritis At this time patient underwent surgery yesterday without complication She is being discharged home by orthopedic surgery She denies any complaints or any medical needs at this time Patient can be discharged from medical standpoint
[2021-02-23] MEDS ORDERED: LOSARTAN-HCTZ 50-12.5 MG 1 EACH TAB PO SCH (17:00)
== END 2021-02-23 14:00 | disposition home health service (06) ==
LOC: OR 13:15 → 4SSUR 17:50 → OR 02-23 07:39
PROVIDERS: ADMIT Orthopaedic Surgery; ATTEND Orthopaedic Surgery
DX: T84.124A Displacement of internal fixation device of right femur, initial encounter (principal); M97.01XA Periprosthetic fracture around internal prosthetic right hip joint, initial encounter; T84.090A Other mechanical complication of internal right hip prosthesis, initial encounter; E78.5 Hyperlipidemia, unspecified; G25.81 Restless legs syndrome; I10 Essential (primary) hypertension; W19.XXXA Unspecified fall, initial encounter; Y93.9 Activity, unspecified; M16.11 Unilateral primary osteoarthritis, right hip; I34.1 Nonrheumatic mitral (valve) prolapse; I34.0 Nonrheumatic mitral (valve) insufficiency; F32.9 Major depressive disorder, single episode, unspecified; G89.29 Other chronic pain; M19.90 Unspecified osteoarthritis, unspecified site; R01.1 Cardiac murmur, unspecified; Z79.899 Other long term (current) drug therapy; Z79.82 Long term (current) use of aspirin; Z88.0 Allergy status to penicillin; Z90.710 Acquired absence of both cervix and uterus; Z96.641 Presence of right artificial hip joint; Z87.891 Personal history of nicotine dependence; Z82.49 Family history of ischemic heart disease and other diseases of the circulatory system; Z83.438 Family history of other disorder of lipoprotein metabolism and other lipidemia; Z80.0 Family history of malignant neoplasm of digestive organs
CPT/HCPCS: 27138; 27236; 97116; 97162; 86891; 85025; 73501; G0378; P9022; C1713; C1776; J2250; J1644; J1100; J2710; J0690 ×2; J2405; J2001; J3010; J1170 ×3; J0330; J2704

== ENCOUNTER → 2023-10-14 | Outpatient (CLI) | payer MEDICARE ==
--- NOTE | 2023-10-15 07:27 | BD ---
EXAMINATION TYPE: Axial Bone Density DATE OF EXAM: 10/14/2023 CLINICAL HISTORY: 73 years old Female. ICD-10 CODE: Z780 POST BERTRAND Height: 5 ft 7 in Weight: 151 FRAX RISK QUESTIONS: Alcohol (3 or more units per day): no Family History (Parent hip fracture): no Glucocorticoids (More than 3mos): no (Ex: prednisone, prednisolone, methylprednisolone, dexamethasone, and hydrocortisone). History of Fracture in Adulthood: yes Secondary Osteoporosis: 1. Type 1 Diabetes: no 2. Hyperthyroidism: no 3. Menopause before 45: no 4. Malnutrition: no 5. Chronic liver disease: no Rheumatoid Arthritis: no Current Tobacco Use: no RISK FACTORS HISTORY OF: Surgery to Spine/Hip(right/left)/Wrist (right/left): jennifer hip replacements When: both 2020 MEDICATIONS: Thyroid Medications: none Osteoporosis Medications: none EXAM MEASUREMENTS: Bone mineral densitometry was performed using the [employer] System. Bone mineral density as measured about the Lumbar spine is: ----- L1-L4(G/cm2): 1.267 T Score Values are as follows: ----- L1: 0.2 ----- L2: 0.8 ----- L3: 0.7 ----- L4: 0.9 ----- L1-L4: 0.7 Z Score Values are as follows: ----- L1: 1.8 ----- L2: 2.4 ----- L3: 2.3 ----- L4: 2.5 ----- L1-L4: 2.3 Bone mineral density has: increased 8.9 % since study of: 2003 Bone mineral density about the L Wrist (g/cm2): 0.603 T Score values are as follows: -----Dist. R+U: -2.0 -----Prox. R+U: -1.0 -----Radius total: -1.2 Z Score values are as follows: -----Dist. R+U: 0.0 -----Prox. R+U: 0.9 -----Radius total: 0.7 first time wrist has been done NO FRAX PT HAS HAD BOTH HIPS REPLACED IMPRESSION: Osteopenia (T Score between -2.5 and -1). There is slightly increased risk of fracture and the patient may be considered for treatment. Re-Screen 2-5 years. NOTE: T-SCORE=SD OF THE YOUNG ADULT MEAN.
--- NOTE | 2023-10-15 20:17 | MM ---
Reason for Exam: Screening (asymptomatic). Last mammogram was performed 7 year(s) and 10 month(s) ago. Patient History: Menarche at age 14. First Full-Term at age 25. Left ovary removed at age 46. Right ovary removed at age 46. Hysterectomy at age 46. Postmenopausal. Patient has history of breast feeding. Risk Values: Clover 5 year model risk: 1.6%. NCI Lifetime model risk: 4.3%. Prior Study Comparison: 04/01/2004 Bilateral Screening Mammogram, [facility]. 12/24/2015 Bilateral Screening Mammogram, [facility]. Tissue Density: There are scattered areas of fibroglandular density. Findings: Analyzed By CAD. The pattern is symmetrical. No significant interval change. No suspicious groups of microcalcifications, spiculated or lobular masses, architectural distortion or other secondary signs of malignancy are mammographically apparent. Overall Assessment: Benign, BI-RAD 2 Management: Screening Mammogram of both breasts in 1 year. A negative mammogram report should not preclude additional follow up of suspicious palpable abnormalities. Patient should continue monthly self breast exam. A clinical breast exam by your physician is recommended on an annual basis and results should be correlated with mammographic findings. Note on Clover scores and lifetime risk: 1. A Clover score greater than 3% is considered moderate risk. If this is the case, consider specialist referral to assess eligibility for a risk reducing agent. 2. If overall lifetime risk for the development of breast cancer is 20% or higher, the patient may qualify for future screening with alternating mammogram and breast MRI. Electronically signed and approved by: Roberto Domingo D.O. Radiologis
== END | disposition home or self-care (01) ==
LOC: RADMAMWWP 12:15
PROVIDERS: ATTEND Family Medicine
DX: Z12.31 Encounter for screening mammogram for malignant neoplasm of breast (principal); M85.842 Other specified disorders of bone density and structure, left hand; Z78.0 Asymptomatic menopausal state
CPT/HCPCS: 77067; 77080

== ENCOUNTER → 2023-12-24 | Outpatient (CLI) | payer MEDICARE ==
--- NOTE | 2023-12-25 10:02 | US ---
EXAMINATION TYPE: US kidneys/renal and bladder DATE OF EXAM: 12/24/2023 COMPARISON: NONE CLINICAL INDICATION: Female, 73 years old with history of N20.0 CALCULUS OF KIDNEY; M54.9 DORSALGIA; left flank pain, never had stones before, unsure if she has them now, microscopic hematuria EXAM MEASUREMENTS: Right Kidney: 10.1 x 4.4 x 4.5 cm Left Kidney: 11.0 x 4.6 x 6.0 cm Right Kidney: No hydronephrosis or masses seen Left Kidney: No hydronephrosis or masses seen Bladder: wnl There is no evidence for hydronephrosis at this point in time. No nephrolithiasis is seen. No torey s are identified. The urinary bladder is anechoic. Bilateral ureteral jets are seen. IMPRESSION: 1. No renal calcification, solid renal mass or hydronephrosis. 2. no evidence of mass within the urinary bladder.
== END | disposition home or self-care (01) ==
LOC: RADUSWWP 15:31
PROVIDERS: ATTEND Family Medicine
DX: N20.0 Calculus of kidney (principal); M54.9 Dorsalgia, unspecified; Z87.442 Personal history of urinary calculi; R10.9 Unspecified abdominal pain
CPT/HCPCS: 76770

== ENCOUNTER 2024-04-13 11:23 | Day surgery (SDC) | payer MEDICARE ==
[~2024-04-13 11:23] MED LIST changes: -DEXAMETHASONE SOD PHOSPHATE 4 MG/ML 1 ML VIAL IV ONE; -ONDANSETRON 4 MG/2 ML VIAL IVP ONE
[2024-04-13] MEDS: IV FLUID CONTINUATION 1,000 ML IV ONE (12:00)
[2024-04-13 12:10] VITALS: TEMP 97.6
[2024-04-13] MEDS: LACTATED RINGERS 1,000 ML IV SCH (12:20)
[2024-04-13] MEDS ORDERED: PROPOFOL 10 MG/ML 20 ML VIAL IV ONE (12:40)
--- NOTE | 2024-04-13 13:00 | P.PCN ---
Date of Procedure: 04/13/24 Procedure(s) Performed: BRIEF HISTORY: Patient is a 73-year-old pleasant white female scheduled for an elective colonoscopy as a part of screening for colon cancer and family history of colon cancer. Her father was diagnosed with colon cancer at age 70. PROCEDURE PERFORMED: Colonoscopy with snare polypectomy. PREOPERATIVE DIAGNOSIS: Screening for colon cancer and family history of colon cancer. IV sedation per Anesthesia. PROCEDURE: After informed consent was obtained, the patient, was brought into the endoscopy unit. IV sedation was administered by Anesthesia under continuous monitoring. Digital rectal examination was normal. Initially the Olympus CF-160 flexible video colonoscope was then inserted in the rectum, gradually advanced into the cecum without any difficulty. Careful examination was performed as the scope was gradually being withdrawn. Ileocecal valve and the appendiceal orifice were visualized and appeared normal. Prep was excellent. Mucosa of the cecum, ascending colon, transverse colon, descending colon, sigmoid colon, and rectum appeared normal. The distal rectum there was a 1 cm polyp removed by snare polypectomy. Retroflexion was performed in the rectum and grade 2 internal hemorrhoids were seen. The patient tolerated the procedure well. IMPRESSION: 1 cm distal rectal polyp status post snare polypectomy Grade 2 internal hemorrhoid RECOMMENDATIONS: Findings of this examination were discussed with the patient as well as her family. She was advised to follow-up with the biopsy results. If the biopsy reveals adenoma she can have repeat colonoscopy in 3 years..
[2024-04-13 14:13] VITALS: PULSE 63; RESP 18
[2024-04-13 14:15] VITALS: BP 179/82
== END 2024-04-13 14:06 | disposition home or self-care (01) ==
LOC: ORWHC2ENDO 11:23
PROVIDERS: ATTEND Internal Medicine Gastroenterology
CPT/HCPCS: 45385; 88305